=== PATIENT | male | born 1970 | race Caucasian/White ===

== ENCOUNTER 2023-04-23 21:55 | Emergency (ER) | payer MEDICAID, SELFPAY ==
[2023-04-23 21:56] VITALS: BP 146/90; PULSE 113; RESP 18; TEMP 36.7; O2SAT 100; BMI 29.9
--- NOTE | 2023-04-23 22:30 | CT_ITS ---
STUDY: CT BRAIN WITHOUT CONTRAST REASON FOR EXAM: Male, 52 years old. injury RADIATION DOSAGE (If Supplied By Facility): CTDIvol = ( 44.99 ) mGy, DLP = ( 829.85 ) mGycm TECHNIQUE: Transaxial CT imaging of the brain was performed without administration of intravenous contrast material. Individualized dose optimization techniques were used for this CT. COMPARISON: No relevant priors. FINDINGS: Normal soft tissue structures. Normal calvarium. Normal size ventricles and extra-axial spaces for the patient''s age. Normal white matter tracts of the cerebral hemispheres. Normal basal ganglia and thalami. Normal brainstem. Normal cerebellum. There is no intracranial hemorrhage. There are no findings of an acute ischemic infarction. Normal visualized paranasal sinuses.
--- NOTE | 2023-04-23 22:30 | CT_ITS ---
STUDY: CT CERVICAL SPINE WITHOUT CONTRAST REASON FOR EXAM: Male, 52 years old. injury RADIATION DOSAGE (If Supplied By Facility): CTDIvol = ( 26.27 ) mGy, DLP = ( 569.25 ) mGycm TECHNIQUE: High resolution transaxial imaging was performed without contrast material. Sagittal and coronal images were reconstructed. Individualized dose optimization techniques were used for this CT. COMPARISON: None FINDINGS: Normal craniovertebral junction. Normal anterior atlantoaxial articulation. Normal odontoid process. Straightening of normal lordotic curvature which may be on the basis of muscle spasm or positioning artifact. Normal vertebral bodies and posterior osseous elements. No lytic or sclerotic bony lesions are identified There is narrowing at, C5-6 and C6-7 disc spaces with endplate spurring and bilateral neural foraminal stenosis secondary to bony hypertrophy.. CT/Spine Cervical without Contras IMPRESSION: Moderate spondylosis. No acute fracture or other significant abnormality. Electronically Signed: Les Rowan MD at 22:54 EDT ,
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
== END 2023-04-23 23:33 | disposition home or self-care (01) ==
PROVIDERS: Emergency Provider Emergency Medicine; Visit Provider Emergency Medicine
DX: S06.0X0A Concussion without loss of consciousness, initial encounter (principal); M54.2 Cervicalgia; R20.2 Paresthesia of skin; V29.91XA Electric (assisted) bicycle rider (driver) (passenger) injured in unspecified traffic accident, initial encounter; F17.210 Nicotine dependence, cigarettes, uncomplicated
CPT/HCPCS: 70450; 72125; 99282

== ENCOUNTER 2025-07-11 11:09 | Emergency (ER) | payer MEDICAID, SELFPAY ==
[2025-07-11 11:09] VITALS: BP 132/80; PULSE 80; RESP 18; TEMP 37.1; O2SAT 98; BMI 31.6
--- OUTSIDE RECORDS SUMMARY | 2025-07-11 11:41 | XMS RPT_ITS | CCD ---
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 daily, and does use cannabis occasionally. REVIEW OF SYSTEMS: No recent illnesses. No numbness or tingling to the extremities. No bowel or bladder symptoms. PHYSICAL EXAMINATION: GENERAL: This is a 51-year-old, pleasant male who is alert and appropriate. He does not appear toxic. He is somewhat amnestic about the actual incident but has otherwise good recollection and a good mental status examination. HEENT: He has a small area of redness and a superficial linear abrasion Page 1 of 2 JOHANA SHEIKH Emergency Room Report JOHANA SHEIKH : 1970 to the right frontal area but very minimal soft tissue swelling. He has mild tenderness to the area. No other scalp tenderness. No cervical tenderness. Full range of motion to his neck. HEENT examination is otherwise all within normal limits. LUNGS: Lungs are clear. No respiratory distress. CARDIAC: Cardiac examination is a regular rhythm without ectopy, murmurs, gallops or rubs. He does have an area of tenderness along the right lateral costal margin but no bony crepitus. No redness, bruising or ecchymosis. No mid or lower back tenderness. ABDOMEN: Abdomen is soft and nontender. EXTREMITIES: He moves his extremities appropriately. He does have a localized area of soft tissue swelling to the left mid-ulna with moderate tenderness with palpation, but there is no step-off or deformity. He has somewhat limited range of motion secondary to pain. No wrist or elbow tenderness. Normal neurovascular examination. He does not have any focal tenderness to other extremities. VITAL SIGNS: As noted. DIAGNOSTIC DATA: X-rays showed a nondisplaced mid-ulnar nightstick fracture. No rib fracture. EMERGENCY DEPARTMENT COURSE AND TREATMENT: He did not want any head CT. I did get right rib and left forearm films. I discussed management with him. I did attempt to call Dr. Pacheco Mayer, but he was in surgery. I did place his left forearm in an ulnar gutter splint. He was given a left arm sling and some [place] for pain. Ice and elevation were recommended to the area. He is to follow up with Orthopedics, Dr. Pacheco Mayer, in the office next week, returning if symptoms worsen. DIAGNOSES: 1. Fall with left ulna fracture. 2. Scattered contusions. 3. Probable concussion. Dictated By: Pipe Luz MD 03/29/22 15:41 JOB #: [id number] Transcribed By: ronaldo 03/30/22 07:12 Electronically signed by: GRETEL Luz M.D. 04/08/22 07:16 Page 2 of 2 JOHANA SHEIKH Emergency Room Report Normal [facility] FOREARM LTon 03-29-[address] [address] Patient: KORIJOHANA Phone#: : 1970 Age: 51 Gender: M Pt. Type: ER Account: [id number] Location: [facility] Ordering: PIPE LUZ Exam Date: 03/29/2022/14:31 Family Phys: Charge Code: 785702 Physician: Box Elder Order #: [id number] DLP Dose#: PROCEDURE: X-RAY FOREARM LT 2 VIEWS COMPARISON: None. INDICATIONS: Fall. FINDINGS: BONES: Nondisplaced oblique fracture of the mid ulna is present. The radius is intact. The joint space at the elbow and wrist are maintained. SOFT TISSUES: Negative. No visible soft tissue swelling. EFFUSION: None visible. OTHER: Negative. CONCLUSION: 1. Nondisplaced mid ulnar fracture. Dictated by: Bernice Baugh MD on 03/29/2022 at 14:40 Approved by: Bernice Baugh MD on 03/29/2022 at 14:41 Normal [facility] RIBS RT UNILAT W/CHEST EXPIR ATIONon 03-29-2022 RIBS RT UNILAT W/CHEST EXPIRATION [address] [address] Patient: JOHANA SHEIKH Phone#: : 1970 Age: 51 Gender: M Pt. Type: ER Account: [id number] Location: [id number] Ordering: PIPE LUZ Exam Date: 03/29/2022/14:26 Family Phys: Charge Code: [id number] Physician: Box Elder Order #: [id number] DLP Dose#: PROCEDURE: X-RAY RIBS RT UNILAT WITH EXPIRATION CHEST COMPARISON: None. INDICATIONS: Fall. FINDINGS: LUNGS: Normal. No significant pulmonary parenchymal abnormalities. VASCULATURE: Normal. Unremarkable pulmonary vasculature. CARDIAC: Normal. No cardiac silhouette abnormality or cardiomegaly. MEDIASTINUM: Normal. No visible mass or adenopathy. PLEURA: Normal. No effusion or pleural thickening. BONES: Normal. No fracture or visible bony lesion. OTHER: Negative. CONCLUSION: No acute disease. Dictated by: Bernice Baugh MD on 03/29/2022 at 14:42 Approved by: Bernice Baugh MD on 03/29/2022 at 14:43 Normal [facility] Vital Signs Date Time Vital Sign Value Performing Clinician Facility 04-23-2023 21:56-0400 Body height 160.02 cm [facility] 04-23-2023 21:56-0400 Body mass index (BMI) [Ratio] 29.9 kg/m2 [facility] 04-23-2023 21:56-0400 Body temperature 98.1 [degF] [facility] 04-23-2023 21:56-0400 Body weight 76.6 kg [facility] 04-23-2023 21:56-0400 Diastolic blood pressure 90 mm[Hg] [facility] 04-23-2023 21:56-0400 Heart rate 113 /min [facility] 04-23-2023 21:56-0400 Respiratory rate 18 /min [facility] 04-23-2023 21:56-0400 SaO2% (BldA) [Mass fraction] 100 % [facility] 04-23-2023 21:56-0400 Systolic blood pressure 146 mm[Hg] [facility] 07-17-2022 13:59-0400 Body height 161 cm No Pcp Required [facility] 07-17-2022 13:59-0400 Body temperature 97.7 [degF] No Pcp Required [facility] 07-17-2022 13:59-0400 Diastolic blood pressure 88 mm[Hg] No Pcp Required [facility] 07-17-2022 13:59-0400 Heart rate 99 /min No Pcp Required [facility] 07-17-2022 13:59-0400 SaO2% (BldA) [Mass fraction] 97 % No Pcp Required [facility] 07-17-2022 13:59-0400 Systolic blood pressure 120 mm[Hg] No Pcp Required [facility] 04-14-2022 03:05-0400 Diastolic blood pressure 78 mm[Hg] No Pcp Required [facility] 04-14-2022 03:05-0400 Heart rate 98 /min No Pcp Required [facility] 04-14-2022 03:05-0400 Respiratory rate 18 /min No Pcp Required [facility] 04-14-2022 03:05-0400 SaO2% (BldA) [Mass fraction] 99 % No Pcp Required [facility] 04-14-2022 03:05-0400 Systolic blood pressure 165 mm[Hg] No Pcp Required [facility] 04-14-2022 02:45-0400 Body height 160 cm No Pcp Required [facility] 04-14-2022 02:45-0400 Body temperature 97.52 [degF] No Pcp Required [facility] 04-14-2022 02:45-0400 Body weight 82 kg No Pcp Required [facility] Encounters Encounter Date Encounter Type Care Provider Facility Start: 04-23-2023 End: 04-24-2023 Emergency department patient visit Cee Martinez Facility:[facility] Start: 04-23-2023 End: 04-23-2023 Emergency department patient visit [facility] Start: 07-17-2022 End: 07-17-2022 Emergency department patient visit [facility] Start: 04-14-2022 End: 04-14-2022 Emergency department patient visit Allen Durand [facility] Emergency 13 Start: 04-11-2022 ambulatory [facility] Start: 03-29-2022 End: 03-29-2022 Emergency department patient visit DOCTOR ON NO [facility] Procedures Date Procedure Procedure Detail Performing Clinician Start: 04-23-2023 CT cervical spine wi thout contrast Start: 04-23-2023 CT of head without contrast Plan of Treatment Date Care Activity Detail Author Patient Education ED Concussion ED Head Injury (Adult) [facility] Work Phone: Patient referral [facility] Work Phone: Payers Date Payer Category Payer Medicaid [id number] 2023 Self-pay 1970 Unknown [id number] 1970 Unknown [id number] 1970 Unknown [id number] 1970 Unknown [id number] Medicaid [id number] Private Health Insurance [facility] [id number] Unknown Unknown [id number] Social History Date Type Detail Facility [facility] Start: 04-23-2023 Tobacco smokin g consumption unknown [facility] Start: 1970 Sex Assigned At Male [facility] Evaluation note Note Date & Type Note Facility Evaluation note No assessment information availa ble [facility] Work Phone: Summary Purpose Family History No Family History Records FoundNo Family History Records FoundNo Family History Records Found Advance Directives No Advanced Directives Records Found Advance Directive Response Recorded Date/ Time Advance Directives No November 27, 2016 6:12pm Living Will No April 23, 2023 10:46pm Power of Sandblast Operator No April 23 3 10:46pm Chief Complaint and Reason for Visit Chief Complaint HEAD INJURY Additional Source Comments (unrecognized sect ion and content) No Status Records FoundNo Status Records FoundNo Status Records Found INFORMATION SOURCE (unrecogn ized section and content) DATE CREATED AUTHOR 04/12/2022 Liam Kinsey [facility] DATE CREATED AUTHOR AUTHOR'S ORGANIZ ATION 10/30/2022 [facility] DATE CREATED AUTHOR AUTHOR'S ORGANIZ ATION 04/29/2023 [facility] <item><item> Privacy Markings (unrecogniz ed section and content) Section Author: Albertina Weaver PROHIBITION ON REDISCLOSURE OF CONFIDENTIAL INFORMATION This notice accompanies a disclosure of information concerning a client made to you with the consent of such client. Section Author: Albertina Weaver PROHIBITION ON REDISCLOSURE OF CONFIDENTIAL INFORMATION This notice accompanies a disclosure of information concerning a client made to you with the consent of such client. Care Teams (unrecognized sec tion and content) Team Status: Active Member Role Status Dates No Primary Care Physician Family Provider Active No Primary Care Physician Primary Care Provider Active Team Status: Inactive Member Role Status Dates No Primary Care Physician Primary Care Provider Active Dr. Cee Martinez MD Emergency Provider Active Goals (unrecognized section and content) Goals may be documented in a n alternate section FOR RECORDS PERTAINING TO PATIENTS WHO ARE OR HAVE BEEN ENROLLED IN A CHEMICAL DEPENDENCY/SUBSTANCEABUSE PROGRAM, SOME INFORMATION MAY BE OMITTED. This clinical summary was aggregated from multiple sources. Caution should be exercised in using it in the provision of clinical care. This summary normalizes information from multiple sources, and as a consequence, information in this document may materially change the coding, format and clinical context of patient data. In addition, data may be omitted in some cases. CLINICAL DECISIONS SHOULD BE BASED ON THE PRIMARY CLINICAL RECORDS. [facility] [employer] [facility]. provides no warranty or guarantee of the accuracy or completeness of information in this document.
--- NOTE | 2025-07-11 12:02 | ED.VIS.DYS ---
HPI History of Present Illness Chief Complaint: Cold Sx Narrative Narrative: Chief complaint and HPI: 54-year-old male with no significant past medical history presents for evaluation of cold-like symptoms. Patient states for the past week he has had nasal congestion, rhinorrhea, sinus pressure, sore throat. States he used to get frequent sinus infections as a child secondary to a cyst however the cyst was removed and sinus infections resolved. States this feels similar to his previous sinus infections. Denies any chest pain, shortness of breath, abdominal pain, nausea, vomiting. Girlfriend has similar symptoms. Review of systems: See HPI Medications: As listed on the chart Allergies: As listed on the chart PFSH: Per chart Vital signs: As listed on the chart. Reviewed. Physical exam: Gen: A&O x3, NAD Head: Normocephalic, atraumatic Eyes: No sclera icterus, conjunctiva clear, PERRL, EOMI ENT: TMs clear BL, moist mucous membranes, posterior oropharynx unremarkable, uvula midline, tonsils not enlarged, no tonsillar exudates, + sinus tenderness, + nasal congestion Neck: Trachea midline, No JVD, Full ROM, No meningismus, no lymphadenopathy CV: RRR, no murmurs, no peripheral edema Resp: Lungs CTA BL, no w/r/c GI: Abd soft, non-distended, non-tender, no r/r/g Musc: Full ROM, no deformity Skin: Warm, dry, no rash Neuro: Alert, oriented, grossly intact, sensation intact PFSH PFSH Home Medications ?Medication ?Instructions ?Recorded ?Last Taken ?Type bacitracin 500 unit/gram topical 28.4 g TP BID ##1 05/21/17 Unknown Rx ointment clindamycin HCl 150 mg capsule 450 mg (3 x 150 mg) PO 4X/DAY ##120 05/21/17 Unknown Rx amoxicillin 875 mg-potassium 1 tab PO BID 10 days #20 tabs 07/11/25 Unknown Rx clavulanate 125 mg tablet Allergy/AdvReac Type Severity Reaction Status Date / Time No Known Allergies Allergy Verified 07/11/25 11:10 Surgical History History of appendectomy History of tonsillectomy and adenoidectomy Social History Smoking Status: Current every day smoker tobacco type: cigarettes EXAM Physical Exam Const Vital Signs: 07/11/25 11:09 07/11/25 11:09 Temperature 98.7 F Temperature Source Oral Pulse Rate 80 Respiratory Rate 18 Respiratory Pattern Normal Blood Pressure 132/80 H Blood Pressure Mean 97 Pulse Ox 98 Oxygen Delivery Method Room Air MDM MDM MDM Narrative Medical decision making narrative: 54-year-old male with no significant past medical history presents for evaluation of cold-like symptoms. Patient states for the past week he has had nasal congestion, rhinorrhea, sinus pressure, sore throat. States symptoms are similar to previous sinus infections. On presentation, patient no acute distress. Nontoxic-appearing. Afebrile. Physical exam is unremarkable except for sinus pressure. I do not think any laboratory workup or imaging is needed at this time. Differential diagnosis includes but is not limited to sinusitis and viral illness. Given patient's duration of symptoms, suspect sinus infection. Patient will be treated with a 10-day course of Augmentin. Follow-up with PCP. Recommended over the counter medication for symptom relief. He confirmed understand the plan. Patient able to discharge home. Impression: 1. Acute sinusitis Discharge Plan Triage Chief Complaint: Cold Sx ED Provider: Vasquez Gonzalez Dx/Rx/DC Orders Clinical Impression: Sinusitis Instructions: ED Sinusitis (Antibiotic Treatment) Prescriptions: New amoxicillin-pot clavulanate 875-125 mg tablet 1 tab PO BID 10 Days Qty: 20 0RF No Action clindamycin HCl 150 MG capsule 450 mg PO 4X/DAY Qty: 120 0RF bacitracin 28.4 GM ointment 28.4 g TP BID Qty: 1 0RF Primary Care Provider: Care Physician,No Primary Referrals: Wilmer Sheikh MD [Med Staff - Active Staff] - 3-5 Days Activity Restrictions/Additional Instructions: Follow-up with primary care physician. Return back to ED if symptoms change or worsen. Recommend guov-mxo-hebonvd medications such as Sudafed and Mucinex. Take all of your antibiotics. Print Language: [place] Disposition Disposition: Home, Self Care
== END 2025-07-11 12:14 | disposition home or self-care (01) ==
PROVIDERS: Emergency Provider Surgery; Visit Provider Surgery
DX: J01.90 Acute sinusitis, unspecified (principal); F17.210 Nicotine dependence, cigarettes, uncomplicated
CPT/HCPCS: 99282